=== PATIENT | female | born 1955 | race Caucasian/White ===

== ENCOUNTER 2023-11-11 11:46 | Emergency (ER) | payer BC ==
[~2023-11-11] VITALS: Ht 162.6 cm; Wt 112.3 kg
[2023-11-11 12:47] VITALS: TEMP 97.7
[2023-11-11 13:26] LABS: BASOPHILS # (AUTO) 0.1 X10'3 (0-0.2); BASOPHILS % (AUTO) 0.6 % (0-1); EOSINOPHILS # (AUTO) 0.1 X10'3 (0-0.9); EOSINOPHILS % (AUTO) 0.6 % (0-6); HEMATOCRIT 41.8 % (35.0-45.0); HEMOGLOBIN 13.3 g/dl (12.0-16.0); LYMPHOCYTES # (AUTO) 1.6 X10'3 (1.1-4.8); LYMPHOCYTES % (AUTO) 18.3 % (21-51); MEAN CORPUSCULAR HEMOGLOBIN 26.2 PG (27.0-31.0); MEAN CORPUSCULAR HGB CONC 31.9 g/dL (33.0-36.5); MEAN CORPUSCULAR VOLUME 82.1 FL (78-98); MEAN PLATELET VOLUME 8.7 FL (7.4-10.4); MONOCYTES # (AUTO) 0.5 X10'3 (0-0.9); MONOCYTES % (AUTO) 6.2 % (2-12); NEUTROPHILS # (AUTO) 6.5 X10'3 (1.8-7.7); NEUTROPHILS % (AUTO) 74.3 % (42-75); PLATELET COUNT 342 X10'3 (140-440); RED BLOOD COUNT 5.09 X10'6 (4.20-5.60); RED CELL DISTRIBUTION WIDTH 15.9 % (11.5-14.5); WHITE BLOOD COUNT 8.7 X10'3 (4.5-11.0)
[2023-11-11 13:34] LABS: ALANINE AMINOTRANSFERASE 18 U/L (12-78); ALBUMIN 3.8 G/DL (3.4-5.0); ALBUMIN/GLOBULIN RATIO 0.9 (1.1-1.5); ALKALINE PHOSPHATASE 103 IU/L (46-116); ANION GAP 8 (8-16); ASPARTATE AMINO TRANSFERASE 19 U/L (10-37); BILIRUBIN,TOTAL 0.3 MG/DL (0.1-1.0); BLOOD UREA NITROGEN 18 MG/DL (7-18); BUN/CREATININE RATIO 13.7 (10.0-20.0); CALCIUM 9.2 MG/DL (8.5-10.1); CHLORIDE 106 MMOL/L (99-107); CREATININE 1.31 MG/DL (0.40-0.90); GLUCOSE 98 MG/DL (70-104); POTASSIUM 4.4 MMOL/L (3.5-5.1); SODIUM 140 MMOL/L (135-145); TOTAL CARBON DIOXIDE 25.9 MMOL/L (24-32); eCRCL 35 ML/MIN; eGFR 40 ML/MIN
[2023-11-11 13:43] LABS: PRO BRAIN NATRIURETIC PEPTIDE 548 PG/ML (0-125)
[2023-11-11] MEDS ORDERED: normal saline 1000ML IV soln IVB ONE (14:30)
[2023-11-11] MEDS ORDERED: meclizine 12.5mg tablet PO ONE (14:30)
[2023-11-11] MEDS ORDERED: ondansetron/PF 4mg/2ml inj IV ONE (14:30)
[2023-11-11] MEDS ORDERED: ONDA4TAB12 PO (14:39)
[2023-11-11] MEDS ORDERED: MECL-226 PO (14:39)
[2023-11-11 15:41] VITALS: BP 188/86; PULSE 72; RESP 18; O2SAT 98
== END 2023-11-11 15:47 | disposition home or self-care (01) ==
LOC: ER 11:47
DX: R42 Dizziness and giddiness (principal); R11.0 Nausea; Z88.8 Allergy status to other drugs, medicaments and biological substances; Z79.899 Other long term (current) drug therapy
CPT/HCPCS: 36415; 70450; 71045; 80053; 83880; 84484; 85025; 93005; 96361; 96374; 99285; J2405; J7030; J8597